=== PATIENT | female | born 1990 | race Caucasian/White ===

== ENCOUNTER 2017-10-28 12:35 | Day surgery (SDC) | payer OTHER ==
[~2017-10-28] VITALS: Ht 170.2 cm; Wt 133.8 kg
[~2017-10-28 12:35] MED LIST: MOTRIN800 MG PO; ORTHO TRI-CY1 TABLET PO; PERCOCET 5/31 TABLET PO
[2017-10-28 12:53] LABS: HEMOGLOBIN 12.6 G/DL (11.9-15.5); MCHC 33.2 G/DL (30.0-36.0); MCV 93.4 FL (83-99); PLATELET COUNT 210 K/uL (156-360); RBC DIS.WIDTH-CV 12.6 % (11.8-14.6); RBC DIS.WIDTH-SD 42.9 % (39-53); RED BLOOD COUNT 4.07 M/uL (3.80-5.20); WHITE BLOOD COUNT 11.4 K/uL (4.1-10.2)
[2017-10-28 13:03] LABS: ALBUMIN 4.2 g/dL (3.2-4.8)
[2017-10-28 13:04] LABS: CHLORIDE 105 mEq/L (99-109); POTASSIUM 4.2 mEq/L (3.7-5.4); SODIUM 139 mEq/L (136-147)
[2017-10-28 13:06] LABS: GLUCOSE 113 mg/dL (70-99); TOTAL PROTEIN 7.3 g/dL (6.4-8.3)
[2017-10-28 13:07] LABS: APPEARANCE CLEAR ((CLEAR)); BILIRUBIN NEGATIVE; BLOOD NEGATIVE; COLOR YELLOW ((YELLOW)); GLUCOSE (STRIP) NEGATIVE; KETONES NEGATIVE; LEUKOCYTES NEGATIVE; NITRITE NEGATIVE; PROTEIN (STRIP) 30; SPECIFIC GRAVITY 1.024 (1.000-1.030); UCUL ADDED? NO; UROBILINOGEN 0.2 MG/DL (0.2-1.0)
[2017-10-28 13:08] LABS: TOTAL BILIRUBIN 0.5 mg/dL (0.0-1.0)
[2017-10-28 13:09] LABS: ALKALINE PHOSPHATASE 59 IU/L (3-129)
[2017-10-28 13:10] LABS: CREATININE 0.9 mg/dL (0.6-1.3); GFR ESTIMATE (CALCULATED) > 59 mL/min/
[2017-10-28 13:11] LABS: AST (GOT) 22 IU/L (2-34); UREA NITROGEN (BUN) 10 mg/dL (9-23)
[2017-10-28 13:13] LABS: ALT (GPT) 26 IU/L (3-49)
[2017-10-28 13:19] LABS: QUANTITATIVE HCG 7908.3 MIU/ML
[2017-10-28] MEDS ORDERED: PERCOCET 5/31 TABLET PO (14:39)
[2017-10-28] MEDS ORDERED: ZOFRAN ODT4 MG PO (14:39)
[2017-10-28 20:16] VITALS: BP 121/66
[2017-10-28 23:17] VITALS: BP 125/62
[2017-10-29 04:05] VITALS: BP 116/67
[2017-10-29 06:24] LABS: HEMATOCRIT 24.9 % (36.0-46.0); MCH 31.6 PG (29.0-34.0); MCHC 33.7 G/DL (30.0-36.0); MCV 93.6 FL (83-99); PLATELET COUNT 172 K/uL (156-360); RBC DIS.WIDTH-CV 12.9 % (11.8-14.6); RBC DIS.WIDTH-SD 43.9 % (39-53); WHITE BLOOD COUNT 17.2 K/uL (4.1-10.2)
[2017-10-29 06:32] LABS: HEMOGLOBIN 8.4 G/DL (11.9-15.5); RED BLOOD COUNT 2.66 M/uL (3.80-5.20)
[2017-10-29] MEDS ORDERED: IBUPROFEN800 MG PO (07:35)
[2017-10-29] MEDS ORDERED: ENDOCET 5-3251 EACH PO (07:35)
[2017-10-29] MEDS ORDERED: FEOSOL325 MG PO (07:35)
[2017-10-29 07:39] VITALS: BP 129/68
[2017-10-29 11:27] VITALS: BP 127/69
== END 2017-10-29 11:40 | disposition home or self-care (01) ==
LOC: EME 12:35 → SDC 17:16 → 2SOUTH 18:39 → ENRESERV 18:41 → 2EASTP 20:09
PROVIDERS: Obstetrics & Gynecology
DX: O00.101 Right tubal pregnancy without intrauterine pregnancy (principal); K66.1 Hemoperitoneum; F17.200 Nicotine dependence, unspecified, uncomplicated; E66.01 Morbid (severe) obesity due to excess calories; Z68.42 Body mass index [BMI] 45.0-49.9, adult
CPT/HCPCS: 74018; 74177; 80053; 81003; 84702; 85027; 86850; 86900; 86901; 88304; G0378; J0330; J0690; J1100; J1170; J1885; J2405; J2710; J3010; J7030; J7120; J7643

== ENCOUNTER 2017-10-31 16:12 | Emergency (ER) | payer OTHER ==
[~2017-10-31] VITALS: Ht 170.2 cm; Wt 136.7 kg
[~2017-10-31 16:12] MED LIST changes: +ENDOCET 5-3251 EACH PO; +FEOSOL325 MG PO; +IBUPROFEN800 MG PO; +ZOFRAN ODT4 MG PO
[2017-10-31 19:23] LABS: BASOPHIL (%) 0.2 % (0-1); EOSINOPHIL (%) 2.5 % (0-5); EOSINOPHIL COUNT 0.3 K/uL (0-0.3); HEMATOCRIT 22.2 % (36.0-46.0); HEMOGLOBIN 7.4 G/DL (11.9-15.5); IMMATURE GRANULOCYTE (%) 0.6 % (0.0-0.7); LYMPHOCYTE (%) 32.5 % (15-42); LYMPHOCYTE COUNT 3.9 K/uL (1.0-2.8); MCH 31.6 PG (29.0-34.0); MCHC 33.3 G/DL (30.0-36.0); MCV 94.9 FL (83-99); MONOCYTE (%) 4.3 % (3-12); MONOCYTE COUNT 0.5 K/uL (0-0.8); NEUTROPHIL (%) 59.9 % (45-76); NEUTROPHIL COUNT 7.2 K/uL (1.8-6.4); PLATELET COUNT 182 K/uL (156-360); RBC DIS.WIDTH-SD 44.6 % (39-53); RED BLOOD COUNT 2.34 M/uL (3.80-5.20)
[2017-10-31 19:34] LABS: ALBUMIN 3.6 g/dL (3.2-4.8); CHLORIDE 105 mEq/L (99-109); SODIUM 138 mEq/L (136-147)
[2017-10-31 19:35] LABS: POTASSIUM 3.3 mEq/L (3.7-5.4)
[2017-10-31 19:36] LABS: GLUCOSE 103 mg/dL (70-99)
[2017-10-31 19:40] LABS: ALKALINE PHOSPHATASE 46 IU/L (3-129); CREATININE 0.8 mg/dL (0.6-1.3); GFR ESTIMATE (CALCULATED) > 59 mL/min/
[2017-10-31 19:41] LABS: UREA NITROGEN (BUN) 7 mg/dL (9-23)
[2017-10-31 19:42] LABS: AST (GOT) 17 IU/L (2-34)
[2017-10-31 19:43] LABS: ALT (GPT) 17 IU/L (3-49)
[2017-10-31 19:43] LABS: APPEARANCE CLOUDY ((CLEAR)); BILIRUBIN NEGATIVE; BLOOD SMALL; COLOR AMBER ((YELLOW)); GLUCOSE (STRIP) NEGATIVE; KETONES NEGATIVE; LEUKOCYTES TRACE; NITRITE NEGATIVE; PROTEIN (STRIP) 30; SPECIFIC GRAVITY 1.033 (1.000-1.030)
[2017-10-31 19:49] LABS: QUANTITATIVE HCG 562.7 MIU/ML
[2017-10-31 19:50] LABS: TOTAL BILIRUBIN 0.3 mg/dL (0.0-1.0); TOTAL PROTEIN 6.1 g/dL (6.4-8.3)
[2017-10-31 20:40] LABS: BACTERIA 2+ /HPF; EPITHELIAL CELLS 2+ /HPF; MUCUS 3+ /LPF; RED BLOOD CELLS 0-5 /HPF (0-5); UCUL ADDED? YES; WHITE BLOOD CELLS 0-5 /HPF (0-5)
[2017-10-31 22:45] VITALS: BP 141/72
[2017-10-31 22:50] VITALS: BP 141/72
[2017-10-31 23:05] VITALS: BP 138/78
[2017-10-31 23:50] VITALS: BP 115/84
[2017-11-01 00:10] VITALS: BP 146/79
[2017-11-01 00:25] VITALS: BP 148/79
[2017-11-01 01:10] VITALS: BP 144/85
[2017-11-01 01:38] VITALS: BP 128/71
[2017-11-01 02:27] VITALS: BP 133/77
== END 2017-11-01 02:29 | disposition home or self-care (01) ==
LOC: EME 16:12
PROVIDERS: Physician Assistant
PROC: 30233N1 Transfusion of Nonautologous Red Blood Cells into Peripheral Vein, Percutaneous Approach (ICD-10-PCS; principal; 2017-11-01)
DX: D64.9 Anemia, unspecified (principal); Z98.890 Other specified postprocedural states; Z90.79 Acquired absence of other genital organ(s); F32.9 Major depressive disorder, single episode, unspecified; K21.9 Gastro-esophageal reflux disease without esophagitis; F41.9 Anxiety disorder, unspecified; F17.200 Nicotine dependence, unspecified, uncomplicated
CPT/HCPCS: 74177; 80053; 81003; 84702; 85025 91; 86850; 86900; 86901; 86920; 87086; 93005; 99281; 99285; J7030; P9016